=== PATIENT | male | born 1940 | race Caucasian/White ===

== ENCOUNTER 2019-05-23 13:59 | Emergency (ER) | payer BC, MEDICARE ==
--- NOTE | 2019-05-23 15:33 | ER Document Report ---
ED Medical Screen (RME) - General Chief Complaint: Shortness Of Breath Stated Complaint: SHORTNESS OF BREATH Time Seen by Provider: 05/23/19 15:21 Notes: Patient is a 78-year-old male presents emergency department with a chief complaint of chest congestion and shortness of breath. He has had his symptoms the past 2 days. He denies any actual chest pain. He has some discomfort when he coughs. Patient has a past medical history of hypertension and diabetes. Exam: Clear lung sounds noted bilaterally. I have greeted and performed a rapid initial assessment of this patient. A comprehensive ED assessment and evaluation of the patient, analysis of test results and completion of medical decision making process will be conducted by an additional ED providers. TRAVEL OUTSIDE OF THE [place] IN LAST 30 DAYS: No Past Medical History - Social History Chew tobacco use (# tins/day): No Frequency of alcohol use: Social Drug Abuse: None Physical Exam - Vital signs Vitals: Temp Pulse BP Pulse Ox 98.4 F 93 149/91 H 93 05/23/19 14:33 05/23/19 14:33 05/23/19 14:33 05/23/19 14:33 Course - Vital Signs Vital signs: Temp Pulse Resp BP Pulse Ox 97.9 F 82 16 141/87 H 96 05/23/19 15:24 05/23/19 15:24 05/23/19 15:24 05/23/19 15:24 05/23/19 15:24
[2019-05-23 15:56] LABS: ABSOLUTE BASOPHILS # (AUTO) 0.1 10^3/uL (0.0-0.2); ABSOLUTE EOSINOPHILS # (AUTO) 0.1 10^3/uL (0.0-0.6); ABSOLUTE LYMPHOCYTES (AUTO) 1.9 10^3/uL (0.5-4.7); ABSOLUTE MONOCYTES (AUTO) 0.8 10^3/uL (0.1-1.4); BASOPHILS % (AUTO) 1.2 % (0-2); EOSINOPHILS % (AUTO) 1.8 % (0-6); HEMATOCRIT 46.8 % (37.9-51.0); HEMOGLOBIN 15.8 g/dL (13.5-17.0); LYMPHOCYTES % (AUTO) 24.1 % (13-45); MEAN CORPUSCULAR HEMOGLOBIN 31.9 pg (27.0-33.4); MEAN CORPUSCULAR HGB CONC 33.8 g/dL (32.0-36.0); MEAN CORPUSCULAR VOLUME 94 fl (80-97); MONOCYTES % (AUTO) 10.3 % (3-13); PLATELET COUNT 142 10^3/uL (150-450); RED BLOOD COUNT 4.96 10^6/uL (4.35-5.55); RED CELL DISTRIBUTION WIDTH 15.7 % (11.5-14.0); SEGMENTED NEUTROPHILS % (AUTO) 62.6 % (42-78); TOTAL CELLS COUNTED % (AUTO) 100 %; WHITE BLOOD COUNT 7.9 10^3/uL (4.0-10.5)
[2019-05-23 16:16] LABS: ALBUMIN 3.9 g/dL (3.5-5.0); ALKALINE PHOSPHATASE 66 U/L (38-126); ANION GAP 10 (5-19); ASPARTATE AMINO TRANSFERASE 29 U/L (17-59); BILIRUBIN,DIRECT 0.3 mg/dL (0.0-0.4); BLOOD UREA NITROGEN 13 mg/dL (7-20); CALCIUM 9.4 mg/dL (8.4-10.2); CARBON DIOXIDE 30 mmol/L (22-30); CHLORIDE 98 mmol/L (98-107); CREATINE KINASE 114 U/L (55-170); GLUCOSE 157 mg/dL (75-110); POTASSIUM 3.3 mmol/L (3.6-5.0); TOTAL PROTEIN 6.8 g/dL (6.3-8.2)
[2019-05-23 16:27] LABS: CREATINE KINASE MB 2.49 ng/mL (<4.55); TROPONIN I < 0.012 ng/mL
--- NOTE | 2019-05-23 16:40 | RADIOLOGY REPORT (SQ) ---
EXAM DESCRIPTION: CHEST SINGLE VIEW COMPLETED DATE/TIME: 05/23/2019 4:23 pm REASON FOR STUDY: shortness of breath COMPARISON: None. EXAM PARAMETERS: NUMBER OF VIEWS: One view. TECHNIQUE: Single frontal radiographic view of the chest acquired. RADIATION DOSE: NA LIMITATIONS: None. FINDINGS: LUNGS AND PLEURA: The right lateral costophrenic sulcus is blunted. There is no consolida tion or pneumothorax MEDIASTINUM AND HILAR STRUCTURES: No mediastinal or hilar contour abnormality. HEART AND VASCULAR STRUCTURES: Cardiomegaly. The pulmonary vasculature is within normal limits. BONES: No acute findings. HARDWARE: ACDF hardware in the cervical spine. OTHER: No other finding. IMPRESSION: Cardiomegaly. The blunting of the right lateral costophrenic sulcus is nonspecific and could represent a trace pleural effusion or pleural thickening. There is no evidence of pulmonary ed lala. TECHNICAL DOCUMENTATION: JOB ID: [id number] [employer]- All Rights Reserved Reading location - IP/workstation name: [email or web address]
--- NOTE | 2019-05-23 17:47 | ER Document Report ---
ED General - General Chief Complaint: Shortness Of Breath Stated Complaint: SHORTNESS OF BREATH Time Seen by Provider: 05/23/19 15:21 Notes: 78-year-old male presents emergency department complaining of tightness and congestion in his chest associated with some shortness of breath for the past day. Denies any pain, denies any dyspnea on exertion, states is associated with a sore throat and very slight cough. Denies rhinorrhea, fever, nausea, vomiting or diarrhea. TRAVEL OUTSIDE OF THE [place] IN LAST 30 DAYS: No Past Medical History - General Information source: Patient - Social History Smoking Status: Former Smoker Chew tobacco use (# tins/day): No Frequency of alcohol use: Social Drug Abuse: None Family History: Reviewed & Not Pertinent Patient has suicidal ideation: No Patient has homicidal ideation: No Review of Systems - Review of Systems Constitutional: No symptoms reported EENT: See HPI Cardiovascular: No symptoms reported Respiratory: See HPI -: Yes All other systems reviewed and negative Physical Exam - Vital signs Vitals: Temp Pulse BP Pulse Ox 98.4 F 93 149/91 H 93 05/23/19 14:33 05/23/19 14:33 05/23/19 14:33 05/23/19 14:33 Interpretation: Hypertensive - Notes Notes: GENERAL: Alert, interacts well. No acute distress. HEAD: Normocephalic, atraumatic EYES: Pupils equal, round and reactive to light, extraocular movements intact. ENT: Oral mucosa moist, tongue midline. Clear rhinorrhea, mild turbinate edema, tympanic membranes intact, slight injection, cobblestoning in the posterior oropharynx. NECK: Full range of motion, supple, trachea midline. LUNGS: Clear to auscultation bilaterally, no wheezes, rales or rhonchi, no respiratory distress. HEART: Regular rate and rhythm, no murmurs, gallops, rubs. ABDOMEN: Soft, nontender, nondistended, bowel sounds present in all 4 quadrants. EXTREMITIES: Moves all 4 extremities spontaneously, no edema, radial and dorsalis pedis pulses 2/4 bilaterally. No cyanosis. NEUROLOGICAL: Alert and oriented x3, normal speech. PSYCH: Normal mood, normal affect. SKIN: Warm, Dry, normal turgor, no rashes or lesions noted. Course - Re-evaluation Re-evalutation: 10/08/19 17:46 CBC shows slight low platelets at 142, CMP shows slight low potassium slightly elevated glucose, cardiac enzymes negative, chest x-ray shows possible trace pleural effusion, this is not correlated with physical exam. Physical exam consistent with viral upper respiratory tract infection. Counseled on nasal saline rinses and nasal steroids. Discharged home. - Vital Signs Vital signs: Temp Pulse Resp BP Pulse Ox 97.9 F 82 16 141/87 H 96 05/23/19 15:24 05/23/19 15:24 05/23/19 15:24 05/23/19 15:24 05/23/19 15:24 - Laboratory Result Diagrams: 05/23/19 15:44 05/23/19 15:44 Laboratory results interpreted by me: 05/23/19 05/23/19 15:44 15:44 RDW 15.7 H Plt Count 142 L Potassium 3.3 L Glucose 157 H - EKG Interpretation by Me Additional EKG results interpreted by me: 05/23/19 17:46 EKG shows atrial fibrillation with a ventricular rate ranging between 73 and 130, 1 PVC, normal axis, no ST segment elevations or depressions per my interpretation. Discharge - Discharge Clinical Impression: Viral upper respiratory tract infection with cough Condition: Stable Disposition: HOME, SELF-CARE Additional Instructions: Upper Respiratory Illness You have a viral infection of the respiratory passages -- a "cold." This common infection causes nasal congestion, drainage, and often sore throat and cough. It is caused by a virus and is highly contagious. The disease usually lasts a week or more, though the worst symptoms are usually over in 3 or 4 days. There is no "cure" for the viral infection -- it must run its course. If there is a complication, such as bacterial infection in the nose, sinuses, middle ear, or bronchial tubes, antibiotics may be required, but antibiotics won't affect the virus. If you smoke, you should STOP!! Drink plenty of fluids. A humidifier may help. An expectorant medication or decongestant may make you more comfortable. Use acetaminophen or ibuprofen for fever or aches. See the doctor if fever persists over two or three days, if there is any significant worsening of your symptoms, or if you simply fail to improve as expected. Please use nasal saline rinses such as a NetiPot or NeilMed Sinus Rinses. Please use ibuprofen (Motrin or Advil) 600-800 mg every 8 hours as needed for pain or fever. You may also use acetaminophen (Tylenol) 1000 mg every 4-6 hours as needed for pain or fever. Please be aware that many medications contain acetaminophen, do not exceed a total of 1000 mg of acetaminophen every 6 hours. Please use Nasonex or other similar [id number] nasal steroid 1 squirt per nostril twice a day.
[2019-05-23 18:14] VITALS: BP 165/98
--- NOTE | 2019-05-23 18:17 | EKG REPORT ---
SEVERITY:- ABNORMAL ECG - ATRIAL FIBRILLATION, V-RATE 73-130 VENTRICULAR PREMATURE COMPLEX : Confirmed by: Tyrone Urbina MD 23-May-2019 18:17:19
== END 2019-05-23 18:10 | disposition home or self-care (01) ==
LOC: ER 13:59
DX: J06.9 Acute upper respiratory infection, unspecified (principal); B97.89 Other viral agents as the cause of diseases classified elsewhere; I49.3 Ventricular premature depolarization; R07.89 Other chest pain; R09.89 Other specified symptoms and signs involving the circulatory and respiratory systems; R06.02 Shortness of breath; J02.9 Acute pharyngitis, unspecified; R05 Cough; J34.89 Other specified disorders of nose and nasal sinuses; D69.6 Thrombocytopenia, unspecified; I48.91 Unspecified atrial fibrillation; Z87.891 Personal history of nicotine dependence
CPT/HCPCS: 36415; 71045; 80053; 82550; 82553; 84484; 85025; 93005; 93010; 99285

== ENCOUNTER 2019-10-28 15:26 | Emergency (ER) | payer MEDICARE, OTHER ==
[2019-10-28 16:25] LABS: ABSOLUTE BASOPHILS # (AUTO) 0.1 10^3/uL (0.0-0.2); ABSOLUTE EOSINOPHILS # (AUTO) 0.1 10^3/uL (0.0-0.6); ABSOLUTE LYMPHOCYTES (AUTO) 2.1 10^3/uL (0.5-4.7); ABSOLUTE MONOCYTES (AUTO) 1.1 10^3/uL (0.1-1.4); ABSOLUTE NEUT (AUTO) 6.2 10^3/uL (1.7-8.2); BASOPHILS % (AUTO) 1.1 % (0-2); EOSINOPHILS % (AUTO) 1.4 % (0-6); HEMATOCRIT 44.5 % (37.9-51.0); HEMOGLOBIN 15.1 g/dL (13.5-17.0); LYMPHOCYTES % (AUTO) 21.3 % (13-45); MEAN CORPUSCULAR HEMOGLOBIN 32.8 pg (27.0-33.4); MEAN CORPUSCULAR VOLUME 97 fl (80-97); MONOCYTES % (AUTO) 11.4 % (3-13); PLATELET COUNT 163 10^3/uL (150-450); RED BLOOD COUNT 4.62 10^6/uL (4.35-5.55); SEGMENTED NEUTROPHILS % (AUTO) 64.8 % (42-78); TOTAL CELLS COUNTED % (AUTO) 100 %; WHITE BLOOD COUNT 9.6 10^3/uL (4.0-10.5)
[2019-10-28 16:41] LABS: ALBUMIN 4.1 g/dL (3.5-5.0); ALKALINE PHOSPHATASE 54 U/L (38-126); ANION GAP 11 (5-19); ASPARTATE AMINO TRANSFERASE 29 U/L (17-59); BILIRUBIN,DIRECT 0.3 mg/dL (0.0-0.4); BILIRUBIN,TOTAL 1.1 mg/dL (0.2-1.3); BLOOD UREA NITROGEN 24 mg/dL (7-20); CALCIUM 8.9 mg/dL (8.4-10.2); CARBON DIOXIDE 30 mmol/L (22-30); CHLORIDE 99 mmol/L (98-107); GLUCOSE 175 mg/dL (75-110); POTASSIUM 3.4 mmol/L (3.6-5.0); TOTAL PROTEIN 7.1 g/dL (6.3-8.2)
[2019-10-28 16:47] LABS: AMORPHOUS SEDIMENT,URINE TRACE /HPF; APPEARANCE,URINE SLIGHTLY-CLOUDY; BILIRUBIN,URINE NEGATIVE (NEGATIVE); COLOR,URINE YELLOW; GLUCOSE, URINE 150 mg/dL (NEGATIVE); KETONES,URINE TRACE mg/dL (NEGATIVE); LEUKOCYTE ESTERASE,URINE LARGE (NEGATIVE); NITRITE,URINE NEGATIVE (NEGATIVE); PROTEIN,URINE 100 mg/dL (NEGATIVE); URINE SPECIFIC GRAVITY 1.014
[2019-10-28] MEDS ORDERED: FENTANYL CITRATE INJ/PF 100 MCG/2 ML AMPUL IV ONE (17:56)
[2019-10-28] MEDS ORDERED: METHOCARBAMOL INJ/PF 1000 MG/10 ML SDV IV ONE (17:56)
--- NOTE | 2019-10-28 18:04 | ER Document Report ---
ED General - General Chief Complaint: Arm Problem Stated Complaint: ARM PAIN/UNABLE TO MOVE ARMS Time Seen by Provider: 10/28/19 15:36 Primary Care Provider: MUSA SOLITARIO MD [Primary Care Provider] - Follow up as needed Notes: Patient is a 79-year-old white male with a past medical history of diabetes who presents to the emergency department with a chief complaint of bilateral upper arm pain that began 2 days ago. Patient denies any known injury, fall or trauma. The adds that he picked up 3 heavy wet [place] sized towels prior to this but no other strenuous activity. Patient states gradual onset of severe pain involving the bilateral upper arms from the elbows to the shoulders. He states pain is significantly worse with any movement and better with keeping the arms flaccid at his side. He denies any radiation of pain. Denies any numbness tingling or weakness. He denies any chest pain or shortness of breath. Denies any other pain, complaints or concerns at this time. Denies any history of si milar event. TRAVEL OUTSIDE OF THE [place] IN LAST 30 DAYS: No - Related Data Allergies/Adverse Reactions: No Known Allergies Allergy (Verified 10/28/19 15:35) Past Medical History - Social History Smoking Status: Never Smoker Chew tobacco use (# tins/day): No Frequency of alcohol use: Heavy Drug Abuse: None Family History: Reviewed & Not Pertinent Patient has suicidal ideation: No Patient has homicidal ideation: No - Past Medical History Cardiac Medical History: Reports: Hx Congestive Heart Failure Review of Systems - Review of Systems Musculoskeletal: Muscle pain -: Yes All other systems reviewed and negative Physical Exam - Vital signs Vitals: Temp Pulse Resp BP Pulse Ox 97.4 F 75 16 188/83 H 96 10/28/19 15:42 10/28/19 15:42 10/28/19 15:42 10/28/19 15:42 10/28/19 15:42 - General General appearance: Appears well, Alert In distress: Moderate - Respiratory Respiratory status: No respiratory distress Chest status: Nontender Breath sounds: Normal Chest palpation: Normal - Cardiovascular Rhythm: Regular Heart sounds: Normal auscultation - Extremities General upper extremity: Normal inspection, Tender - Diffuse tenderness to palpation involving the bilateral elbows, upper arm and shoulders. No swelling, erythema or increased warmth. No rash. Range of motion limited secondary to patient's pain level. Neurovascularly intact distally with a 2+ radial pulse bilaterally. - Neurological Neuro grossly intact: Yes Cognition: Normal Orientation: AAOx4 [place] Coma Scale Eye Opening: Spontaneous [place] Coma Scale Verbal: Oriented Ayse Coma Scale Motor: Obeys Commands Ayse Coma Scale Total: 15 Speech: Normal - Psychological Associated symptoms: Normal affect, Normal mood - Skin Skin Temperature: Warm Skin Moisture: Dry Skin Color: Normal Course - Re-evaluation Re-evalutation: 10/28/19 20:23 No evidence of rhabdomyolysis. CK normal. Patient had no traumatic injuries to the upper extremities. Distally he is neurovascularly intact. Possible overuse injury. Patient is feeling better after the pain medications. He had a significant amount of white blood cells in his urine, minimal RBCs. No other significant abdomen infection. He was given a gram Rocephin IV here. 2 L of normal saline. He will be sent home with a short course of pain medications and muscle relaxers. Counseled him at length regarding the importance of outpatient follow-up with his doctor on Wednesday morning for reevaluation. Advised that he return here or any ER immediately with any new, persistent or worsening symptoms. He verbalized understood and agreed. - Vital Signs Vital signs: Temp Pulse Resp BP Pulse Ox 97.4 F 75 16 188/83 H 96 10/28/19 15:42 10/28/19 15:42 10/28/19 15:42 10/28/19 15:42 10/28/19 15:42 - Laboratory Result Diagrams: 10/28/19 16:05 10/28/19 16:05 Laboratory results interpreted by me: 10/28/19 10/28/19 10/28/19 15:58 16:05 16:05 RDW 15.0 H Potassium BUN Est GFR (MDRD) Non-Af Glucose Uric Acid 9.3 H Urine Protein 100 H Urine Glucose (UA) 150 H Urine Ketones TRACE H Urine Urobilinogen 2.0 H Ur Leukocyte Esterase LARGE H 10/28/19 16:05 RDW Potassium 3.4 L BUN 24 H Est GFR (MDRD) Non-Af 59 L Glucose 175 H Uric Acid Urine Protein Urine Glucose (UA) Urine Ketones Urine Urobilinogen Ur Leukocyte Esterase Discharge - Discharge Clinical Impression: Myalgia Arm pain Qualifiers: Laterality: bilateral Qualified Code(s): M79.601 - Pain in right arm; M79.602 - Pain in left arm Condition: Stable Disposition: HOME, SELF-CARE Instructions: Myalagia (Muscle Pain) ([facility]) Additional Instructions: Please call and follow-up with your doctor on Wednesday for further evaluat ion and management. Please return here or any ER immediately with any new, persistent or worsening symptoms. Prescriptions: Methocarbamol [Robaxin 750 mg Tablet] 750 mg PO Q6 #20 tablet Referrals: MUSA SOLITARIO MD [Primary Care Provider] - Follow up as needed
[2019-10-28] MEDS: NORMAL SALINE 1000 ML 1,000 ML IV PRN ×2 (18:20→18:21)
[2019-10-28] MEDS ORDERED: CEFTRIAXONE 1 GM/D5W RTU 1 GM/50 ML RTUPB IV ONE (19:00)
[2019-10-28] MEDS ORDERED: HYDROMORPHONE HCL INJ/PF 2 MG/ML AMPULE IV ONE (20:04)
[2019-10-28] MEDS ORDERED: HYDROCODONE/ACETAMINOPHEN 5-325 MG (6 TAB/ER DISP) PO PRN ×2 (20:47→23:00)
[2019-10-28 21:21] VITALS: BP 138/78
[2019-10-29] MEDS ORDERED: HYDROCODONE/ACETAMINOPHEN 5-325 MG (6 TAB/ER DISP) PO SCH (23:00)
== END 2019-10-28 21:19 | disposition home or self-care (01) ==
LOC: ER 15:26
DX: M79.10 Myalgia, unspecified site (principal); M79.622 Pain in left upper arm; M79.621 Pain in right upper arm; E11.9 Type 2 diabetes mellitus without complications
CPT/HCPCS: 99283; 96361; 96375; 96365; 96367; 36415; 82553; 82550; 84550; 85025; 80053; 81001; J3010; J2800; J1170; J7030; J0696; A9270

== ENCOUNTER 2020-07-09 08:53 | Emergency (ER) | payer OTHER ==
[2020-07-09 09:22] VITALS: BP 129/72
[2020-07-09] MEDS ORDERED: HYDROXYZINE PAMOATE 50 MG CAPSULE PO ONE (09:35)
[2020-07-09 10:27] LABS: ABSOLUTE EOSINOPHILS # (AUTO) 0.2 10^3/uL (0.0-0.6); ABSOLUTE LYMPHOCYTES (AUTO) 1.3 10^3/uL (0.5-4.7); ABSOLUTE MONOCYTES (AUTO) 0.9 10^3/uL (0.1-1.4); BASOPHILS % (AUTO) 0.2 % (0-2); EOSINOPHILS % (AUTO) 3.1 % (0-6); HEMOGLOBIN 15.8 g/dL (13.5-17.0); LYMPHOCYTES % (AUTO) 19.8 % (13-45); MEAN CORPUSCULAR HEMOGLOBIN 32.3 pg (27.0-33.4); MEAN CORPUSCULAR HGB CONC 33.7 g/dL (32.0-36.0); MEAN CORPUSCULAR VOLUME 96 fl (80-97); MONOCYTES % (AUTO) 14.1 % (3-13); PLATELET COUNT 169 10^3/uL (150-450); RED CELL DISTRIBUTION WIDTH 15.7 % (11.5-14.0); SEGMENTED NEUTROPHILS % (AUTO) 62.8 % (42-78); TOTAL CELLS COUNTED % (AUTO) 100 %; WHITE BLOOD COUNT 6.4 10^3/uL (4.0-10.5)
[2020-07-09 10:37] LABS: ALBUMIN 4.1 g/dL (3.5-5.0); ALKALINE PHOSPHATASE 57 U/L (38-126); ANION GAP 12 (5-19); ASPARTATE AMINO TRANSFERASE 36 U/L (17-59); BILIRUBIN,DIRECT 0.3 mg/dL (0.0-0.4); BILIRUBIN,TOTAL 1.3 mg/dL (0.2-1.3); BLOOD UREA NITROGEN 36 mg/dL (7-20); CALCIUM 9.7 mg/dL (8.4-10.2); CARBON DIOXIDE 36 mmol/L (22-30); CHLORIDE 87 mmol/L (98-107); GLUCOSE 194 mg/dL (75-110); TOTAL PROTEIN 6.7 g/dL (6.3-8.2)
[2020-07-09 10:41] LABS: POTASSIUM 2.7 mmol/L (3.6-5.0)
[2020-07-09] MEDS ORDERED: POTASSIUM CHLORIDE 10 MEQ TABLET.ER PO ONE (10:59)
--- NOTE | 2020-07-09 11:19 | ER Document Report ---
ED General - General Chief Complaint: Rash Stated Complaint: RASH, FACIAL SWELLING Time Seen by Provider: 07/09/20 09:19 Primary Care Provider: MUSA SOLITARIO MD [Primary Care Provider] - Follow up as needed Mode of Arrival: Ambulatory Information source: Patient TRAVEL OUTSIDE OF THE [place] IN LAST 30 DAYS: No - HPI Notes: Patient presents with diffuse itching. He states he noticed his scalp and arms have developed a rash and have been itching for approximately 5 to 7 days. The only new exposure he knows of is approximately 2 weeks ago he started taking the spice turmeric [id number]. He denies any other known new exposures. Never had similar previous reactions. He denies any other significant symptoms such as shortness of breath or trouble speaking or swallowing. He states that he has been having trouble sleeping secondary to the itching. He was given a topical steroid by his family doctor which has provided no relief. - Related Data Allergies/Adverse Reactions: No Known Allergies Allergy (Verified 07/09/20 09:19) Past Medical History - General Information source: Patient - Social History Smoking Status: Former Smoker Frequency of alcohol use: None Drug Abuse: None Family History: Reviewed & Not Pertinent - Past Medical History Cardiac Medical History: Reports: Hx Congestive Heart Failure Review of Systems - Review of Systems Constitutional: denies: Chills, Fever Cardiovascular: denies: Chest pain, Palpitations Respiratory: denies: Cough, Short of breath -: Yes All other systems reviewed and negative Physical Exam - Vital signs Vitals: Temp Pulse Resp BP Pulse Ox 97.5 F 66 16 105/64 99 07/09/20 09:00 07/09/20 09:00 07/09/20 09:00 07/09/20 09:00 07/09/20 09:00 Interpretation: Normal - General General appearance: Appears well, Alert - HEENT Head: Normocephalic, Atraumatic Eyes: Normal Pupils: PERRL - Respiratory Respiratory status: No respiratory distress Chest status: Nontender Breath sounds: Normal Chest palpation: Normal - Cardiovascular Rhythm: Regular Heart sounds: Normal auscultation Murmur: No - Abdominal Inspection: Normal Distension: No distension Bowel sounds: Normal Tenderness: Nontender Organomegaly: No organomegaly - Back Back: Normal, Nontender - Extremities General upper extremity: Normal inspection, Nontender, Normal color, Normal ROM, Normal temperature General lower extremity: Normal inspection, Nontender, Normal color, Normal ROM, Normal temperature, Normal weight bearing. No: Arielle's sign - Neurological Neuro grossly intact: Yes Cognition: Normal Orientation: AAOx4 [place] Coma Scale Eye Opening: Spontaneous Ayse Coma Scale Verbal: Oriented [place] Coma Scale Motor: Obeys Commands [place] Coma Scale Total: 15 Speech: Normal Motor strength normal: LUE, RUE, LLE, RLE Sensory: Normal - Psychological Associated symptoms: Normal affect, Normal mood - Skin Skin Temperature: Warm Skin Moisture: Dry Skin Color: Erythema, Other - Patient has a diffuse erythematous papular rash with some excoriations where he has been scratching it. It is essentially nonblanching. Course - Re-evaluation Re-evalutation: 07/09/20 11:13 Patient's laboratories are mainly remarkable for hypokalemia which will be corrected. I have also instructed the patient to start taking his potassium supplement every day. I have also called and spoke with the english division chair. The english division chair recommends that the patient stop turmeric. He also recommends that the patient start Zyrtec, clobetasol lotion, and Sarna lotion. He states he can see the patient in the office. - Vital Signs Vital signs: Temp Pulse Resp BP Pulse Ox 97.5 F 78 20 129/72 H 97 07/09/20 09:21 07/09/20 09:21 07/09/20 09:21 07/09/20 09:21 07/09/20 09:21 - Laboratory Result Diagrams: 07/09/20 10:10 07/09/20 10:10 Laboratory results interpreted by me: 07/09/20 07/09/20 10:10 10:10 RDW 15.7 H [place] % (Auto) 14.1 H Sodium 135.2 L Potassium 2.7 L* Chloride 87 L Carbon Dioxide 36 H BUN 36 H Creatinine 1.67 H Est GFR ( Amer) 49 L Est GFR (MDRD) Non-Af 40 L Glucose 194 H Discharge - Discharge Clinical Impression: Hypokalemia Allergic reaction Qualifiers: Encounter type: initial encounter Qualified Code(s): T78.40XA - Allergy, unspecified, initial encounter Condition: Stable Disposition: HOME, SELF-CARE Instructions: Acute Allergic Reaction ([facility]), Contact Dermatitis ([facility]), Hypokalemia ([facility]) Additional Instructions: Please take your potassium pill each day Please stop taking the turmeric Please start taking the Zyrtec and clobetasol as prescribed. Please buy Sarna lotion [id number] and use daily. Stop Triamcinalone Prescriptions: Cetirizine HCl [Zyrtec 10 mg Tablet] 10 mg PO QHS 14 Days #14 tablet Clobetasol Propionate 1 applic TP BID 14 Days #1 tube Referrals: MUSA SOLITARIO MD [Primary Care Provider] - Follow up as needed MUSA CASTRO DO [ACTIVE STAFF] - Follow up in 3-5 days
== END 2020-07-09 11:40 | disposition home or self-care (01) ==
LOC: ER 08:53
DX: E87.6 Hypokalemia (principal); T78.40XA Allergy, unspecified, initial encounter; I50.9 Heart failure, unspecified
CPT/HCPCS: 36415; 80053; 85025; 99283

== ENCOUNTER 2020-08-26 12:45 | Emergency (ER) | payer OTHER, MEDICARE ==
[2020-08-26 13:17] VITALS: BP 148/85
[2020-08-26] MEDS ORDERED: OXYCODONE-ACETAMINOPHEN 5-325 MG TABLET PO ONE (13:59)
--- NOTE | 2020-08-26 14:10 | ER Document Report ---
ED Extremity Problem, Upper - General Chief Complaint: Arm Problem Stated Complaint: RIGHT ARM PAIN Time Seen by Provider: 08/26/20 13:54 Primary Care Provider: MUSA SOLITARIO MD [Primary Care Provider] - Follow up as needed Notes: CHIEF COMPLAINT: Right upper arm pain for 2 days HPI: 79-year-old male presenting with right upper biceps pain for 2 days. No trauma. Hurts specifically to move the arm or flex the arm. No forearm or wrist pain. No fall. No chest pain shortness of breath. No weakness numbness or tingling in the extremities. ROS: See HPI - all other systems were reviewed and are otherwise negative Constitutional: no fever Cardiovascular: no chest pain Resp: no SOB, no cough Integumentary: no rash Allergy: no hives Musculoskeletal: + extremity pain or swelling Neurological: no numbness/tingling, no weakness MEDICATIONS: I agree with the patient medications as charted by the RN. ALLERGIES: I agree with the allergies as charted by the RN. PAST MEDICAL HISTORY/PAST SURGICAL HISTORY: Reviewed and agree as charted by RN. SOCIAL HISTORY: Reviewed and agree as charted by RN. FAMILY HISTORY: No significant familial comorbid conditions directly related to patient complaint EXAM: Reviewed vital signs as charted by RN. CONSTITUTIONAL: Alert and oriented and responds appropriately to questions. Well-appearing; well-nourished HEAD: Normocephalic; atraumatic EYES: Conjunctivae clear, sclerae non-icteric ENT: normal nose; no rhinorrhea; moist mucous membranes NECK: Supple without meningismus; non-tender; no cervical lymphadenopathy, no masses CARD: RRR; no murmurs, no clicks, no rubs, no gallops; symmetric distal pulses RESP: Normal chest excursion without splinting or tachypnea; breath sounds clear and equal bilaterally; no wheezes, no rhonchi, no rales, pulse oximetry 98% on room air not hypoxic ABD/GI: Normal bowel sounds; non-distended; soft, non-tender BACK: The back appears normal and is non-tender to palpation, there is no CVA tenderness EXT: Normal ROM in all joints; patient with no tenderness in the right forearm or wrist. Radial and ulnar pulses are present in the right wrist. Sensation intact in the fingertips with capillary refill less than 3 seconds. There is no tenderness on the medial aspect of the right biceps or inner arm. There is no cording of the veins. Patient has tenderness specifically at the biceps insertion point proximally in the right upper arm. Patient states he has had biceps repair 10 years ago distally. no cyanosis, no effusions, no edema SKIN: Normal color for age and race; warm; dry; good turgor; no acute lesions noted NEURO: Moves all extremities equally; Motor and sensory function intact PSYCH: The patient's mood and manner are appropriate. Grooming and personal hygiene are appropriate. MDM: 79-year-old male with 2 days of right arm pain specific to movement. No trauma. He has tenderness specifically over the proximal insertion point of the biceps. X-ray does not show an acute fracture. I have low suspicion for DVT in the upper extremity at this time he has no tenderness on the inner aspect of the arm and only has pain with movement. I will place him on a short course of pain medication refer to orthopedics for follow-up. He will be given strict return precautions. I have low suspicion for CVA or ACS at this time TRAVEL OUTSIDE OF THE [place] IN LAST 30 DAYS: No - Related Data Allergies/Adverse Reactions: No Known Allergies Allergy (Verified 07/09/20 09:19) Home Medications: eliquis, htn med, hchol med, metformin, insulin, lasix.... Past Medical History - Social History Smoking Status: Former Smoker Chew tobacco use (# tins/day): No Frequency of alcohol use: Rare Drug Abuse: None Family History: Reviewed & Not Pertinent Patient has homicidal ideation: No - Past Medical History Cardiac Medical History: Reports: Hx Congestive Heart Failure Physical Exam - Vital signs Vitals: Temp Pulse Resp BP Pulse Ox 97.5 F 93 16 148/85 H 95 08/26/20 13:13 08/26/20 13:13 08/26/20 13:13 08/26/20 13:13 08/26/20 13:13 Course - Re-evaluation Re-evalutation: 08/26/20 14:16 I do not visualize an acute fracture in the right upper extremity on x-ray - Vital Signs Vital signs: Temp Pulse Resp BP Pulse Ox 97.5 F 93 16 148/85 H 95 08/26/20 13:13 08/26/20 13:13 08/26/20 13:13 08/26/20 13:13 08/26/20 13:13 - Laboratory Results Critical Laboratory Results Reviewed: No Critical Results - Radiology Results Critical Radiology Results Reviewed: No Critical Results Discharge - Discharge Clinical Impression: Right upper limb pain Condition: Stable Disposition: HOME, SELF-CARE Instructions: Arm Pain, Nonspecific ([facility]) Additional Instructions: Cool compresses to the upper biceps region. Your x-ray did not show evidence of a fracture. Take the pain medication as prescribed watch for balance issues of taking stronger narcotic medications. Follow-up closely with orthopedics for further evaluation and treatment call for appointment. If you develop increasing pain or swelling in the arm, redness of the arm, chest pain or shortness of breath return for reevaluation of your symptoms as discussed Prescriptions: Oxycodone HCl/Acetaminophen [Percocet 5-325 mg Tablet] 1 tab PO Q4H PRN #15 tab PRN Reason: Referrals: MUSA SOLITARIO MD [Primary Care Provider] - Follow up as needed ANTONIA PLATT DO [ACTIVE STAFF] - Follow up as needed
--- NOTE | 2020-08-26 14:42 | RADIOLOGY REPORT (SQ) ---
EXAM DESCRIPTION: HUMERUS RIGHT IMAGES COMPLETED DATE/TIME: 08/26/2020 2:15 pm REASON FOR STUDY: pain COMPARISON: None. NUMBER OF VIEWS: Two views. TECHNIQUE: AP and lateral views of the right humerus were obtained. LIMITATIONS: None. FINDINGS: MINERALIZATION: Decreased. BONES: Chronic fracture deformity of the mid humeral diaphysis. There are 2 surgical screws in the d istal humeral diaphysis. There is no acute fracture. SOFT TISSUES: No soft tissue swelling or radiopaque foreign body. OTHER: Osteoarthrosis of the acromioclavicular joints and findings of rotator cuff tendinopathy at th e greater tubercle of the humerus. IMPRESSION: No acute osseous abnormality of the right humerus. TECHNICAL DOCUMENTATION: JOB ID: [id number] 2010 [employer]- All Rights Reserved Reading location - IP/workstation name: [email or web address]
== END 2020-08-26 14:44 | disposition home or self-care (01) ==
LOC: ER 12:45
DX: M79.601 Pain in right arm (principal)
CPT/HCPCS: 99284